=== PATIENT | female | born 1990 | race Caucasian/White ===

== ENCOUNTER 2018-02-25 10:16 | Emergency (ER) | payer SELFPAY ==
[~2018-02-25] VITALS: Ht 170.2 cm; Wt 56.7 kg
[2018-02-25] MEDS ORDERED: Ketorolac 60mg Inj IM ONE (11:30)
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
--- NOTE | 2018-02-25 13:01 | Diagnostic Imaging Report ---
Indication: left shoulder pain Findings: 3 views of the left shoulder were obtained. Alignment of the left shoulder is normal. No acute fracture is identified. Soft tissues are unremarkable. Impression: No acute injury
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
[2018-02-25] MEDS ORDERED: IBUPROFEN800 MG ORAL (13:31)
[2018-02-25] MEDS ORDERED: LIDODERM700 M1 TOPIC (13:31)
[2018-02-25 13:47] VITALS: BP 118/78
== END 2018-02-25 13:49 | disposition home or self-care (01) ==
LOC: EMR 11:00
DX: S40.012A Contusion of left shoulder, initial encounter (principal); S20.212A Contusion of left front wall of thorax, initial encounter; W05.1XXA Fall from non-moving nonmotorized scooter, initial encounter; Y92.9 Unspecified place or not applicable
CPT/HCPCS: 81025; 96372; 99284